=== PATIENT | female | born 1980 | race Caucasian/White ===

== ENCOUNTER 2023-09-10 14:18 | Outpatient (CLI) | payer OTHER, SELFPAY ==
--- NOTE | 2023-09-10 11:12 | DI.RAD_ITS ---
Exam(s) XR KNEE LT 4V AP,LAT,FRANKLIN,PAT EXAM: XR KNEE LT 4V AP,LAT,FRANKLIN,PAT CLINICAL HISTORY: LEFT KNEE PAIN. TECHNIQUE: 2D digital imaging was performed. COMPARISON: No exams were available for comparison FINDINGS: Four views No evidence fracture nor joint effusion. No joint space narrowing in all 3 compartments. No osteoph ytes. No osteochondral defects evident. On the frontal view there is benign-appearing cortical thickening on the lateral aspect of the diaphy sis-metaphysis junction of distal femur measuring 3 cm craniocaudal length by 0.6 cm wide. Suspect t hat this may be related to the insertion of the vastus lateralis muscle. IMPRESSION: There is thickening of the cortex of the lateral aspect of the diaphysis metaphysis junction of dista l femur as described above. This has benign appearance and I suspect this is possibly related to the insertion site of the vastus lateralis muscle/tendon. Recommend views of the opposite side for keisha gonzalez. DATA REPOSITORY: RADIATION DOSE DELIVERED:
== END 2023-09-10 14:19 | disposition home or self-care (01) ==
LOC: DIORS 14:19
PROVIDERS: PCP Family Medicine; Visit Provider Student in an Organized Health Care Education/Training Program
DX: M25.562 Pain in left knee (principal)
CPT/HCPCS: 73564

== ENCOUNTER 2024-01-07 04:01 | Outpatient (CLI) | payer OTHER, SELFPAY ==
--- NOTE | 2024-01-07 10:32 | TELEFU_ITS ---
Date of service: 01/07/24 Time of Service: 09:00 Nutrition Note NOTE: Casper referred for nutrition appt in regards to weight management struggles she's been having. At last provider appt she was 201.6lbs with a BMI of 34.5 She reports no food allergies but she does acknowledge she is a picky eater (rated herself a 1 on a 1-10 scale of pickiness). She currently does not take any nutrition supplements. She lives with her mother and boyfriend with 3 children and finds food budget to be a concern as well. 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 She tends to have some constipation concerns. She relates her eating pattern as skipping breakfast and will eat a later morning meal. Per her diet history, I assess her usual intake as low in produce and fiber and higher in start than would be recommended. Her protein intake appears adequate but I would not call it optimal for weight loss and tends to be mainly from animal products than can carry more kcals with them depending on routine fat levels in these types of food choices. Encouraged Casper at her age and with her wt mgt goals, to really focus on the health of her muscles - optimally would recommend ~125g lean protein per day and to get a good 30g within an hour of waking. Suggested collagen and whey protein for various benefits and trying to get some protein from plant options like whole oats, nuts and seeds, whole soy. She does not care for some of these. Suggested strength training due to benefits to metabolism as well as to help stave of age-related muscle loss going into her mid-40's and [place]. Reviewed importance of aiming for two guiding numbers to help put her closer to target for weight loss to happen and that was keeping added sugar component to 25g or less and keeping dietary fiber to 25g or more. Casper would also benefit from a multivitamin/mineral with iron and iodine to support her micronutrient intake due to her more choosy eating behavior. Would also suggest added vitamin D3 (2,000IU in summer months and 4,000IU in winter months. Casper has my contact information should she want more materials/resources or would like follow up visits for accountability sake. Time Spent in Nutritional Counseling and Treatment: 45 min
== END 2024-01-07 04:02 | disposition home or self-care (01) ==
LOC: DS 04:02
PROVIDERS: PCP Family Medicine; Visit Provider Dietitian, Registered
DX: Z71.3 Dietary counseling and surveillance (principal)
CPT/HCPCS: 00123; 97802

== ENCOUNTER 2024-08-03 00:43 | Outpatient (CLI) | payer OTHER, SELFPAY ==
--- NOTE | 2024-08-03 | DI.MAMMO_ITS ---
Exam(s) MAMMO SCREENING EXAM: MAMMO SCREENING CLINICAL HISTORY: Screening, Z12.31 TECHNIQUE: Bilateral full field digital CC and MLO mammographic images were obtained with 3D tomosyn thesis and utilizing computer aided detection (CAD). COMPARISON: The baseline examination. There are no priors for comparison. FINDINGS: Masses/Architectural Distortion: No suspicious masses or areas of architectural distortion are presen t. Microcalcifications: No suspicious pleomorphic-type are seen. Skin Thickening/Nipple Retraction: None. IMPRESSION: 1. There is no evidence for malignancy at this time. 2. Unless there is more urgent need, screening mammography is recommended, as per [place] [employer] guidelines. BI-RADS Category 1 - Negative Breast Density - Category B - Scattered areas of fibroglandular density Breast density category C or D implies that the patient has dense breast tissue. Dense breast tissue is very common and is not abnormal but dense breast tissue can make it harder to find cancer on a ma mmogram. Also, dense breast tissue may increase their breast cancer risk. This information about the result of the mammogram report was provided to the patient to raise their awareness. Use this report when you speak with the patient about their risks for breast cancer, which includes their family hist ory. At that time, you may recommend for more screening tests (Ultrasound or MRI) as they might be us eful based on their risk. A negative radiographic report should not delay biopsy if a dominant or clinically suspicious mass is present. Up to ten percent of cancers are not identified on mammography. A negative report may reinforce clinical impression. Adenosis and dense breasts may obscure an underlying neoplasm. False positive reports average 6 to 10%. Patient will receive a letter notifying them of these results.
== END 2024-08-03 01:03 ==
LOC: DI 00:43
PROVIDERS: PCP Family Medicine; Visit Provider Nurse Practitioner Family
DX: Z12.31 Encounter for screening mammogram for malignant neoplasm of breast (principal); R92.323 Mammographic fibroglandular density, bilateral breasts
CPT/HCPCS: 77063; 77067